=== PATIENT | female | born 1970 | race Caucasian/White ===

== ENCOUNTER → 2017-01-03 | Outpatient (CLI) | payer OTHER | LOC: EMI 13:53 | DX: Z53.9 Procedure and treatment not carried out, unspecified reason (principal) ==

== ENCOUNTER 2021-03-03 20:20 | Emergency (ER) | payer OTHER ==
[2021-03-03] MEDS ORDERED: CYCLOBENZAPRINE5 MG PO (22:51)
[2021-03-03] MEDS ORDERED: NAPROSYN500 MG PO (22:51)
== END 2021-03-03 22:56 | disposition home or self-care (01) ==
LOC: ER1 20:20
DX: S30.0XXA Contusion of lower back and pelvis, initial encounter (principal); M25.532 Pain in left wrist; J45.909 Unspecified asthma, uncomplicated; Z88.0 Allergy status to penicillin; Z88.8 Allergy status to other drugs, medicaments and biological substances; W01.0XXA Fall on same level from slipping, tripping and stumbling without subsequent striking against object, initial encounter
CPT/HCPCS: 72131; 73110; 96372; 99284; J1885; J2270